=== PATIENT | female | born 1945 | race Caucasian/White ===

== ENCOUNTER → 2017-04-17 | Outpatient (CLI) | payer MEDICARE, BC ==
[~2017-04-17] MED LIST: ACIPHEX20 MG PO; ASPIRIN 81M81 MG/TA2 PO; B-121000 MCG PO; BENADRYL25 M2 PO; CALCIUM 600/VIT1 TAB PO; CALCIUM600 MG PO; COZAAR100 MG PO; DITROPAN 5MG TAB5 MG PO; FERROUS SULFATE65 MG PO; GLUCOSAMINE CHO1 CAP PO; GLUCOSAMINE SU500 M2 PO; L-LYSINE500 M1 PO; MAGNESIUM250 M1 PO; NORCO 325 MG-51 TAB PO; NORVASC 5MG5 MG/TAB PO; PREDNISONE10 MG PO; PREMARIN .3MG0.3 MG PO; PROTONIX 40MG T40 MG PO; TRIAM OI 15 0.025 TOP; TYLENOL ARTHRI650 M1 PO; VITAMIN D 1001000 IU PO
== END ==
LOC: MC.RAD 12:50
DX: Z12.31 Encounter for screening mammogram for malignant neoplasm of breast (principal)

== ENCOUNTER 2018-05-21 02:17 | Emergency (ER) | payer MEDICARE, BC ==
[~2018-05-21] VITALS: Ht 157.5 cm; Wt 68.2 kg
[2018-05-21 02:24] VITALS: TEMP 97.9
[2018-05-21 03:34] LABS: BASO % 0.6 % (0.0-2.0); EOS # 0.3 (0.0-0.7); EOS % 4.6 % (0-4.0); GRAN # 4.2 (1.4-6.5); GRAN % 57.4 % (42.2-75.2); HEMOGLOBIN 12.4 g/dl (12.5-16.0); LYMPH % 26.9 % (20.0-51.0); MEAN CELL VOLUME 93 fl (80.0-100.0); MEAN CORPUSCULAR HEMOGLOBIN 32 pg (27.0-31.0); MEAN CORPUSCULAR HGB CONC 34 g/dl (33.0-37.0); MEAN PLATELET VOLUME 10.2 fl (7.4-10.4); MONO # 0.7 (0.1-0.6); MONO % 10.2 % (1.7-9.3); PLATELET COUNT 242 K/mm3 (130-400); RED BLOOD COUNT 3.94 M/mm3 (4.10-5.30); REDCELL DISTRIBUTION WIDTH-CV 12.7 % (11.5-14.5)
[2018-05-21 03:35] LABS: HEMATOCRIT 36.5 % (37.0-47.0)
[2018-05-21 03:44] LABS: ALBUMIN 4.1 gm/dL (3.5-5.0); BILIRUBIN,TOTAL 0.4 mg/dL (0.0-1.0); CALCIUM 9.7 mg/dL (8.4-10.2); CREATININE, serum 0.92 mg/dL (0.52-1.25); POTASSIUM 4.6 mmol/L (3.4-5.0); TOTAL PROTEIN 6.7 gm/dL (6.4-8.2)
[2018-05-21 05:41] LABS: COLLECTION METHOD CLEAN CATCH
[2018-05-21 05:56] LABS: PH 7 (5-8); URINE APPEARANCE Hazy; URINE BACTERIA None Seen /hpf; URINE BILIRUBIN Negative (NEGATIVE); URINE BLOOD 1+ (NEGATIVE); URINE COLOR Straw; URINE GLUCOSE Negative (NEGATIVE); URINE KETONE Negative (NEGATIVE); URINE LEUKOCYTE ESTERASE 3+ (NEGATIVE); URINE NITRATE Negative (NEGATIVE); URINE PROTEIN(semi-quant) Negative (NEGATIVE); URINE RBC 0-2 /hpf; URINE UROBILINOGEN Negative (NEGATIVE)
[2018-05-21] MEDS ORDERED: ZOFRAN ODT8 MG PO (06:13)
[2018-05-21 07:13] VITALS: BP 150/72; PULSE 94
== END 2018-05-21 07:11 | disposition home or self-care (01) ==
LOC: COL.ER 02:17
PROVIDERS: Emergency Medicine
DX: N39.0 Urinary tract infection, site not specified (principal); I10 Essential (primary) hypertension; Z98.51 Tubal ligation status
CPT/HCPCS: A4216; J0696; J2270; J2405; J7030; Q9967

== ENCOUNTER 2018-07-11 10:50 | Day surgery (SDC) | payer MEDICARE, BC ==
[~2018-07-11] VITALS: Ht 157.5 cm; Wt 65.5 kg
[~2018-07-11 10:50] MED LIST changes: +ZOFRAN ODT8 MG PO
[2018-07-11 11:46] VITALS: BP 111/79; PULSE 69; TEMP 97.2
[2018-07-11] MEDS ORDERED: PROBIOTIC ACID1 EAC3 PO (11:56)
[2018-07-11] MEDS ORDERED: ALDACTONE 25MG25 M1 PO (11:56)
[2018-07-11 14:30] VITALS: BP 135/61; PULSE 65; TEMP 97.2
--- NOTE | 2018-07-11 14:30 | NUR ---
Patient brought back to bay 2. Alert and oriented. Vital signs obtained WNL. States that she is having pain of 9/10 to abdomen. Anestesia to admisiter pain medication at this time. Stewart at bedside. Requesting water and applesauce. Tolerating well. Call bustillos within reach, will continue to monitor.
[2018-07-11 14:45] VITALS: BP 151/67; PULSE 52; TEMP 97.2
--- NOTE | 2018-07-11 14:45 | NUR ---
Patients vital signs obtained, WNL. Tolerating food and drink without difficulty. Will continue to monitor.
[2018-07-11] MEDS ORDERED: MOTRIN 600600 MG/TAB PO (14:55)
[2018-07-11] MEDS ORDERED: DILAUDID 2MG TAB2 MG PO (14:55)
[2018-07-11] MEDS ORDERED: COLACE 100100 MG/CAP PO (14:56)
[2018-07-11 15:00] VITALS: BP 111/89; PULSE 49
[2018-07-11 15:15] VITALS: BP 105/79; PULSE 60
--- NOTE | 2018-07-11 15:15 | NUR ---
Patient reports that she has had minimal pain improvement since medication administration. Patient offered more IV pain medication. States that she would rather go home and take new perscribed medication. Ambulated to the bathroom with contact guard assist. Spontaneous void obtained. Patient states she is ready for discharge instructions.
--- NOTE | 2018-07-11 15:20 | NUR ---
Discharge instructions reviewed with patient and . Verbalized understanding. IV removed. Patient to have get dressed at this time.
--- NOTE | 2018-07-11 15:39 | NUR ---
Vital signs WNL. Tolerating food and drink well. Will continue to monitor.
--- NOTE | 2018-07-11 15:47 | NUR ---
Patient wheeled down to lobby. To be driven home by . Education packet, discharge instructions, and scripts in hand.
== END 2018-07-11 15:47 | disposition home or self-care (01) ==
LOC: SDCO 10:50
DX: K40.90 Unilateral inguinal hernia, without obstruction or gangrene, not specified as recurrent (principal); I10 Essential (primary) hypertension; E78.5 Hyperlipidemia, unspecified; K21.9 Gastro-esophageal reflux disease without esophagitis; Z86.010 Personal history of colon polyps; M41.9 Scoliosis, unspecified; M17.12 Unilateral primary osteoarthritis, left knee; M16.10 Unilateral primary osteoarthritis, unspecified hip; Z80.42 Family history of malignant neoplasm of prostate; Z80.41 Family history of malignant neoplasm of ovary; Z80.8 Family history of malignant neoplasm of other organs or systems; Z79.899 Other long term (current) drug therapy
CPT/HCPCS: C1781; J0690; J1885; J2250; J2405; J2704; J3010; J7120

== ENCOUNTER 2020-06-07 17:56 | Emergency (ER) | payer MEDICARE, BC ==
[~2020-06-07] VITALS: Ht 157.5 cm; Wt 70.9 kg
[~2020-06-07 17:56] MED LIST changes: +ALDACTONE 25MG25 M1 PO; +COLACE 100100 MG/CAP PO; +DILAUDID 2MG TAB2 MG PO; +MOTRIN 600600 MG/TAB PO; +PROBIOTIC ACID1 EAC3 PO
[2020-06-07 18:03] VITALS: TEMP 97.2
[2020-06-07 21:12] VITALS: BP 150/95; PULSE 78
== END 2020-06-07 21:11 | disposition home or self-care (01) ==
LOC: COL.ER 17:56
DX: S22.050A Wedge compression fracture of T5-T6 vertebra, initial encounter for closed fracture (principal); S01.01XA Laceration without foreign body of scalp, initial encounter; S40.021A Contusion of right upper arm, initial encounter; Z88.6 Allergy status to analgesic agent; I10 Essential (primary) hypertension; W10.9XXA Fall (on) (from) unspecified stairs and steps, initial encounter; Y92.009 Unspecified place in unspecified non-institutional (private) residence as the place of occurrence of the external cause

== ENCOUNTER 2021-03-23 11:22 | Inpatient (IN) | payer MEDICARE, BC ==
[~2021-03-23] VITALS: Ht 157.5 cm; Wt 79.1 kg
[2021-03-23 15:33] LABS: BASO % 0.2 % (0.0-2.0); EOS % 0.3 % (0.0-4.0); GRAN # 11.3 K/mm3 (1.4-6.5); GRAN % 86.7 % (42.2-75.2); HEMATOCRIT 37.2 % (37.0-47.0); HEMOGLOBIN 12.7 g/dl (12.5-16.0); LYMPH # 0.9 K/mm3 (1.2-3.4); LYMPH % 6.7 % (20.0-51.0); MEAN CELL VOLUME 90 fl (80.0-100.0); MEAN CORPUSCULAR HEMOGLOBIN 31 pg (27-31); MEAN CORPUSCULAR HGB CONC 34 g/dl (33.0-37.0); MEAN PLATELET VOLUME 9.4 fl (7.4-10.4); MONO # 0.7 K/mm3 (0.1-0.6); MONO % 5.7 % (1.7-9.3); PLATELET COUNT 239 K/mm3 (130-400); RED BLOOD COUNT 4.15 M/mm3 (4.10-5.30); REDCELL DISTRIBUTION WIDTH-CV 13.2 % (11.5-14.5)
[2021-03-23 15:39] LABS: INR 0.9 (0.8-3.0); PROTHROMBIN TIME 10.4 SECONDS (9.7-12.8)
[2021-03-23 15:48] LABS: ALBUMIN 3.9 gm/dL (3.4-4.8); BILIRUBIN,TOTAL 0.7 mg/dL (0.2-1.2); CALCIUM 8.9 mg/dL (8.4-10.2); CREATININE, serum 0.81 mg/dL (0.57-1.11); TOTAL PROTEIN 6.9 gm/dL (6.2-8.1)
--- NOTE | 2021-03-23 17:00 | NUR ---
arrived on unit per stretcher from ED, moved to bed with use of slide board, slacks removed, requesting a muscle relaxant, at bedside
--- NOTE | 2021-03-23 17:45 | NUR ---
C/O PAIN TO LEFT HIP MEDICATED WITH MORPHINE 2MG SLOW iv
--- NOTE | 2021-03-23 18:00 | NUR ---
glover cath inserted under sterile technique, appears to continue to be in pain, will notify provider for something different for pain
[2021-03-23 18:18] LABS: COLLECTION METHOD CLEAN CATCH
[2021-03-23 18:26] LABS: MUCOUS Present (NOT PRESENT); PH 6 (5-8); URINE APPEARANCE Hazy (CLEAR/HAZY); URINE BACTERIA Rare /hpf (NONE SEEN); URINE BILIRUBIN Negative (NEGATIVE); URINE BLOOD Negative (NEGATIVE); URINE COLOR Yellow (YELLOW); URINE GLUCOSE Negative (NEGATIVE); URINE KETONE Trace (NEGATIVE); URINE LEUKOCYTE ESTERASE 1+ (NEGATIVE); URINE NITRATE Positive (NEGATIVE); URINE PROTEIN(semi-quant) Negative (NEGATIVE); URINE UROBILINOGEN Negative (NEGATIVE)
--- NOTE | 2021-03-23 18:36 | NUR ---
spoke with WALE Zepeda regarding different pain meds
--- NOTE | 2021-03-23 18:45 | NUR ---
medicated with dilaudid 0.25mg slow IV
--- NOTE | 2021-03-23 18:55 | NUR ---
bedside alexia report given to MAT Thompson
[2021-03-23] MEDS ORDERED: COZAAR 50MG50 MG/TAB PO (19:29)
[2021-03-23] MEDS ORDERED: TYLENOL 325MG325 MG PO (19:33)
[2021-03-23] MEDS ORDERED: CRANBERRY FRUI425 MG PO (19:35)
[2021-03-23] MEDS ORDERED: FOSAMAX 70MG TA70 MG PO (19:51)
[2021-03-23 20:00] VITALS: BP 159/91; PULSE 88; TEMP 98.4
[2021-03-24] VITALS (9 sets, daily range): BP systolic 117–156; BP diastolic 60–84; PULSE 74–97; TEMP 97.6–98.2
--- NOTE | 2021-03-24 01:33 | NUR ---
PATIENT ALERT AND ORIENTED. MED RX DONE. ICE TO L HIP. L WRIST IN SPLINT/LEANN WRAP. MOTTA TO DD WITH CLEAR YELLOW URINE OUTPUT. PATIENT TOLERATED SOME BITES OF CRACKERS AND WATER. NPO AT MID. C/O SEVERE PAIN TO L HIP. PRN DILAUDID AND SCHEDULED TYLENOL WAS GIVEN WITH LITTLE PAIN REDUCTION. SPOKE WITH WALE LECHUGA, FOR INCREASE IN DILAUDID ORDER. DILAUDID 0.5 MG GIVEN IV SLOW PUSH. PATIENT IS NOW RESTING IN BED. SCDS AND DAVIN HOSE IN PLACE. CALL LIGHT WITHIN REACH.
[2021-03-24 06:10] LABS: BASO % 0.2 % (0.0-2.0); EOS # 0.1 K/mm3 (0.0-0.7); EOS % 1.1 % (0.0-4.0); HEMATOCRIT 37.3 % (37.0-47.0); HEMOGLOBIN 12.7 g/dl (12.5-16.0); LYMPH % 10.9 % (20.0-51.0); MEAN CELL VOLUME 89 fl (80.0-100.0); MEAN CORPUSCULAR HEMOGLOBIN 30 pg (27-31); MEAN CORPUSCULAR HGB CONC 34 g/dl (33.0-37.0); MEAN PLATELET VOLUME 9.9 fl (7.4-10.4); MONO # 0.7 K/mm3 (0.1-0.6); MONO % 7.5 % (1.7-9.3); PLATELET COUNT 213 K/mm3 (130-400); RED BLOOD COUNT 4.18 M/mm3 (4.10-5.30); REDCELL DISTRIBUTION WIDTH-CV 13.2 % (11.5-14.5)
[2021-03-24 06:27] LABS: CALCIUM 8.8 mg/dL (8.4-10.2); CREATININE, serum 0.73 mg/dL (0.57-1.11); POTASSIUM 3.9 mmol/L (3.5-4.5)
--- NOTE | 2021-03-24 08:15 | NUR ---
PATIENT IS A&O. VSS. C/O SEVERE PAIN IN LLE AND BACK. GAVE PRN IV DILAUDID. NPO FOR SURGERY TODAY PENDING ECHO. LLE IS DRAWN UP AND SLIGHTLY INTERNALLY ROTATED. TEDS TO RLE. SCD'S TO BLE. POSITIVE PEDAL PULSES TO BLE. MOTTA TO DD WITH SMALL AMOUNTS OF CLEAR YELLOW URINE NOTED. IV FLUIDS INFUSING INTO RIGHT FORARM IV VIA PUMP. NO C/O N/V. AM MEDS GIVEN WITH SIPS. HELD AM COZZAR DUE PATIENT ONLY TAKES AT HS, MED REC TO BE UPDATED WITH HOSPITALIST ROUNDS. LUE SPLINT IS CD&I. BEDREST. HEAD TO TOE ASSESSMENT COMPLETE. CALL LIGHT IN REACH. SUPERVISOR MACHINE SETTER NOW AT BEDSIDE.
--- NOTE | 2021-03-24 10:26 | NUR ---
Initial visit; Ella thanked Dental Secretary for looking in on her, offering comfort and prayer. Dental Secretary will follow up while patient is here and will keep her in Dental Secretary's prayers.
--- NOTE | 2021-03-24 11:25 | NUR ---
electric utility lineworker met with patient to discuss discharge plan. Patient's Ganesh ([phone]) present at bedside. Patient reports that she lives at home with her and is independent with her activities of daily living. She reports to not having to utilize any DME to assist with mobility. Patient reports to no oxygen needs at home. PCP is Dr. Ribeiro and they utilize [facility] pharmacy for medication needs with no cost difficulty. Patient believes they have a DPOA-HC established and that a copy should be on file with PCP office. Patient gives permission to call and obtain a copy. Spoke with patient and patient's about the need for post acute rehab. Patient verbalizes that she has never done it before but would like to do whatever will make her heal the fastest. After speaking with the patient about her options she would like [facility] as her preferred choice and [facility] as a secondary. Referrals sent to IPR director Brina and [facility]. Discharge plan: Pending PT/OT referrals
--- NOTE | 2021-03-24 14:45 | NUR ---
PATIENT GOING DOWN TO OR VIA BED. BLANK CONSENT ON CHART. WANTS TO WAIT IN ROOM
--- NOTE | 2021-03-24 17:30 | NUR ---
PATIENT BACK IN ROOM 323 POST OP. ORIENTED BUT DROWSY. VSS. DENIES PAIN OR NAUSEA. LEFT HIP DRESSING IS CD&I WITH GAUZE & TEGADERM. TEDS TO BLE. SCD'S TO BLE. POSITIVE PEDAL PULSES. PATIENT IS UNABLE TO MOVE BLE AT THIS TIME DUE TO BLOCK. MOTTA TO DD. POST OP IV FLUIDS INFUSING INTO RIGHT FORARM. HEAD TO TOE ASSESSMENT WNL. FAMILY AT BEDSIDE. CALL LIGHT IN REACH.
--- NOTE | 2021-03-24 22:10 | NUR ---
PATIENT TOOK OFF MONITORING EQUIPMENT.
--- NOTE | 2021-03-24 22:11 | NUR ---
PATIENT TOOK OFF MONITORING EQUIPMENT.
--- NOTE | 2021-03-25 01:55 | NUR ---
Scheduled medications given. Shift assessment performed. Post op vitals being monitored. Dressing on left hip is CDI. Patient has sensation in operative extremity and is able to slightly move. Scheduled tylenol given. VSS. Patient A&O. Patient denies any pain, discomfort, SOA, or further needs at this time. Call light in reach.
--- NOTE | 2021-03-25 02:01 | NUR ---
Rizzo catheter in place. No kinks in tubing. Securment device in use.
[2021-03-25 06:22] LABS: BASO % 0.4 % (0.0-2.0); EOS # 0.4 K/mm3 (0.0-0.7); GRAN # 4.7 K/mm3 (1.4-6.5); GRAN % 68.1 % (42.2-75.2); LYMPH # 1.1 K/mm3 (1.2-3.4); LYMPH % 15.7 % (20.0-51.0); MEAN CELL VOLUME 90 fl (80.0-100.0); MEAN CORPUSCULAR HEMOGLOBIN 30 pg (27-31); MEAN CORPUSCULAR HGB CONC 33 g/dl (33.0-37.0); MEAN PLATELET VOLUME 10.2 fl (7.4-10.4); MONO # 0.7 K/mm3 (0.1-0.6); MONO % 9.4 % (1.7-9.3); PLATELET COUNT 188 K/mm3 (130-400); RED BLOOD COUNT 3.67 M/mm3 (4.10-5.30); REDCELL DISTRIBUTION WIDTH-CV 13.3 % (11.5-14.5)
[2021-03-25 06:30] LABS: CALCIUM 7.9 mg/dL (8.4-10.2); CREATININE, serum 0.75 mg/dL (0.57-1.11); POTASSIUM 3.9 mmol/L (3.5-4.5)
[2021-03-25 06:32] LABS: HEMATOCRIT 33.1 % (37.0-47.0)
--- NOTE | 2021-03-25 07:00 | NUR ---
Report received from MAT Boone. PT in bed resting awake nad alert.
[2021-03-25 07:58] VITALS: BP 119/72; PULSE 79; TEMP 97.9
--- NOTE | 2021-03-25 08:36 | NUR ---
Pt doing well, pain to L hip, PRN pain pill provided in anticipation of therapy this am. L hip dressing is CDI, small amount of swelling. IVF to R A/C. Pt passing gas. L wrist in splint and CMS intact. Waiting for breakfast, will continue to monitor.
--- NOTE | 2021-03-25 10:00 | NUR ---
Follow-up visit; Patient using telephone, Gaming Dealer wished her well. Ella had a family member with her as well.
[2021-03-25 11:24] VITALS: BP 106/69; PULSE 100; TEMP 97.7
--- NOTE | 2021-03-25 12:57 | NUR ---
[facility] accepts the patient for SN[facility]. Clinical updates faxed to [facility] and IPR director Brina notified.
[2021-03-25 15:29] VITALS: BP 116/66; PULSE 95; TEMP 97.8
--- NOTE | 2021-03-25 17:51 | NUR ---
Pt has done well over shift. Warm blankets, KPAD, ice pack to left hip, doing well with pain medications provided PRN over shift. Resting in bed, will give report to [facility] nurse who will resume care.
[2021-03-25 19:59] VITALS: BP 95/67; PULSE 99; TEMP 97.7
--- NOTE | 2021-03-25 23:39 | NUR ---
PATIENT DOING WELL TONIGHT. ALERT AND ORIENTED. DENIES NEEDS FOR PAIN MANAGEMENT INTERVENTIONS. KPAD TO ABD FOR WARMTH. INT TO R FA PATENT AND FLUSHES EASILY. SCHEDULED MEDS ADMINISTERED PER EMAR. GAUZE DRESSING TO L HIP INCISION IS CDI.
[2021-03-26 00:05] VITALS: BP 96/54; PULSE 81; TEMP 98.2
[2021-03-26 04:13] VITALS: BP 105/71; PULSE 80; TEMP 98.4
[2021-03-26 07:59] LABS: CALCIUM 8.2 mg/dL (8.4-10.2); CREATININE, serum 0.78 mg/dL (0.57-1.11); POTASSIUM 3.6 mmol/L (3.5-4.5)
[2021-03-26 08:09] LABS: BASO % 0.5 % (0.0-2.0); EOS # 0.7 K/mm3 (0.0-0.7); EOS % 9.6 % (0.0-4.0); GRAN # 4.7 K/mm3 (1.4-6.5); GRAN % 62.8 % (42.2-75.2); HEMOGLOBIN 11.2 g/dl (12.5-16.0); LYMPH # 1.2 K/mm3 (1.2-3.4); LYMPH % 16.3 % (20.0-51.0); MEAN CELL VOLUME 91 fl (80.0-100.0); MEAN CORPUSCULAR HEMOGLOBIN 30 pg (27-31); MEAN CORPUSCULAR HGB CONC 33 g/dl (33.0-37.0); MEAN PLATELET VOLUME 10.5 fl (7.4-10.4); MONO # 0.8 K/mm3 (0.1-0.6); MONO % 10.5 % (1.7-9.3); PLATELET COUNT 189 K/mm3 (130-400); RED BLOOD COUNT 3.68 M/mm3 (4.10-5.30); REDCELL DISTRIBUTION WIDTH-CV 13.5 % (11.5-14.5)
[2021-03-26 08:14] LABS: HEMATOCRIT 33.5 % (37.0-47.0)
[2021-03-26 08:32] VITALS: BP 98/65; PULSE 80; TEMP 97.7
--- NOTE | 2021-03-26 08:45 | NUR ---
Patient resting in bed watching TV. She tolerated her breakfast. She is in good spirits. Cms intact, left wrist brace on. Left hip dressing CDI. Teds & Scds. Matthias to DD, discussed with her needing this removed today. We also reviewed importance of increaing activity.
--- NOTE | 2021-03-26 11:12 | NUR ---
Patient assisted up to chair one assist with her walker. She did well. She brushed her teeth. warm wipes & lotion to skin. Patient feels better with repositioning.
[2021-03-26 12:30] VITALS: BP 117/82; PULSE 77; TEMP 97.7
--- NOTE | 2021-03-26 13:41 | NUR ---
Skating Carhop contacted [facility] Gonsal[facility] Director who advised they could possibly admit tomorrow, pending staffing and approval from licensed nursing assistant. SW faxed clinical updates to [facility].
--- NOTE | 2021-03-26 14:24 | NUR ---
Patient did well with lunch. rounded. Matthias Nick per orders, eliud provided with brief on. Will contineu to monitor.
--- NOTE | 2021-03-26 14:48 | NUR ---
Patient up to bedside commode, she was unable to void or have a BM. Patient ready to rest in bed and take a nap. Will let her rest.
[2021-03-26 15:40] VITALS: BP 100/63; PULSE 81; TEMP 97.3
--- NOTE | 2021-03-26 17:15 | NUR ---
Patient resting in bed. Neymar chen back on. Ordering dinner, reports minimal appetite. Will monitor
--- NOTE | 2021-03-26 18:11 | NUR ---
Patient up to bedside commode. Void & BM. Now sitting in chair for dinner.
[2021-03-26 19:41] VITALS: BP 99/58; PULSE 74; TEMP 97.9
--- NOTE | 2021-03-26 23:01 | NUR ---
PATIENT ALERT AND ORIENTED. GAUZE DRESSING TO L HIP CDI. C/O MUSCLE SPASMS AND MEG AND FLEXERIL GIVEN. KPAD IN PLACE. INT TO R FA WITH ROCEPHIN INFUSING. UP SEVERAL TIMES TO BEDSIDE COMMODE.
[2021-03-27 00:11] VITALS: BP 125/67; PULSE 78; TEMP 97.5
[2021-03-27 03:33] VITALS: BP 119/77; PULSE 67; TEMP 97.6
--- NOTE | 2021-03-27 06:53 | NUR ---
awake sitting up in chair, bedside shift report received from MAT Camarillo
--- NOTE | 2021-03-27 07:13 | NUR ---
working on computer, full assessment completed, see interventions for further info, denies needs at this time
[2021-03-27 07:23] VITALS: BP 157/84; PULSE 73; TEMP 97.7
--- NOTE | 2021-03-27 08:45 | NUR ---
remains up in chair, had breakfast and tolerated well, am meds given, will wait to take miralax at this time
--- NOTE | 2021-03-27 09:52 | NUR ---
back in bed and appears to be sleeing, eyes closed, resp quiet and easy
[2021-03-27 10:57] VITALS: BP 130/62; PULSE 71; TEMP 97.9
--- NOTE | 2021-03-27 11:05 | NUR ---
remains resting in bed without needs or c/os
--- NOTE | 2021-03-27 11:53 | NUR ---
up in chair ready for lunch, informed she would be going to inpatient rehab today and in agreement with this
[2021-03-27] MEDS ORDERED: OMNICEF 300MG300 MG PO (12:21)
[2021-03-27] MEDS ORDERED: ASPI325T6 PO (12:23)
[2021-03-27] MEDS ORDERED: ROXICODONE 55 MG/TAB PO (12:25)
[2021-03-27] MEDS ORDERED: DULCOLAX STOOL100 MG PO (12:26)
[2021-03-27] MEDS ORDERED: MIRALAX PA17 GM/Dose PO (12:26)
[2021-03-27] MEDS ORDERED: OSCAL 500 TAB500 MG PO (12:26)
[2021-03-27] MEDS ORDERED: VITAMIN C500 MG PO (12:27)
[2021-03-27] MEDS ORDERED: DUO-KAPS1 CAP PO (12:27)
[2021-03-27] MEDS ORDERED: FLEXERIL 1010 MG/TAB PO (12:28)
--- NOTE | 2021-03-27 12:40 | NUR ---
Patient to discharge to [facility] later today. Patient's RN and hospitalist notified.
--- NOTE | 2021-03-27 13:30 | NUR ---
remains up in chair, in to visit
--- NOTE | 2021-03-27 13:58 | NUR ---
transferred per WC to IPR room 336
== END 2021-03-27 13:59 | DRG 481 ==
LOC: COL.ER 11:22 → SURG 16:27
PROVIDERS: Orthopaedic Surgery Sports Medicine; Physician Assistant; ADMIT Internal Medicine
PROC: 0QH734Z Insertion of Internal Fixation Device into Left Upper Femur, Percutaneous Approach (ICD-10-PCS; principal; 2021-03-24 15:30)
DX: S72.002A Fracture of unspecified part of neck of left femur, initial encounter for closed fracture (principal); S52.302A Unspecified fracture of shaft of left radius, initial encounter for closed fracture; S52.502A Unspecified fracture of the lower end of left radius, initial encounter for closed fracture; N39.0 Urinary tract infection, site not specified; I10 Essential (primary) hypertension; K21.9 Gastro-esophageal reflux disease without esophagitis; M21.052 Valgus deformity, not elsewhere classified, left hip; R01.1 Cardiac murmur, unspecified; Z96.652 Presence of left artificial knee joint; W00.0XXA Fall on same level due to ice and snow, initial encounter; Y93.89 Activity, other specified; Y92.89 Other specified places as the place of occurrence of the external cause; Z23 Encounter for immunization
CPT/HCPCS: 99223-AI; 99231-AI; 99232-AI; 99239; A4314; A9284; C1713; J0690; J0696; J1170; J2270; J2405; J2704; J2795; J3010; J7042

== ENCOUNTER 2021-03-27 13:21 | Inpatient (IN) | payer MEDICARE, BC ==
[~2021-03-27] VITALS: Ht 157.5 cm; Wt 84.5 kg
[~2021-03-27 13:21] MED LIST changes: +ASPI325T6 PO; +COZAAR 50MG50 MG/TAB PO; +CRANBERRY FRUI425 MG PO; +DULCOLAX STOOL100 MG PO; +DUO-KAPS1 CAP PO; +FLEXERIL 1010 MG/TAB PO; +FOSAMAX 70MG TA70 MG PO; +MIRALAX PA17 GM/Dose PO; +OMNICEF 300MG300 MG PO; +OSCAL 500 TAB500 MG PO; +ROXICODONE 55 MG/TAB PO; +TYLENOL 325MG325 MG PO; +VITAMIN C500 MG PO
--- NOTE | 2021-03-27 13:59 | NUR ---
arrived per WC to room 336, awake and alert, at bedside
--- NOTE | 2021-03-27 15:20 | NUR ---
resting in chair, admission assessment completed,
--- NOTE | 2021-03-27 17:00 | NUR ---
remains up in chair and eating supper now
[2021-03-27 18:02] VITALS: BP 122/65; PULSE 88; TEMP 97.9
--- NOTE | 2021-03-27 18:49 | NUR ---
bedside shift given to MAT Friend
[2021-03-28 02:07] VITALS: BP 146/88; PULSE 79; TEMP 97.9
--- NOTE | 2021-03-28 04:36 | NUR ---
RESTING QUIETLY MOST OF NIGHT. ASSIST OF 1 TO TOILET. TYLENOL AND OXYCODONE FOR LLE PAIN.
--- NOTE | 2021-03-28 06:54 | NUR ---
Report received from MAT Friend. Patient is awake in bed and requested this nurse assist her in repositioning herself because she was not comfortable. Patient also stated her pain was a 5/10. This nurse told her she would bring her something for the pain when I brought her medication. Call light and bedside table are within reach. Will continue to monitor patient throughout shift.
--- NOTE | 2021-03-28 11:15 | NUR ---
Patient's granddaughter called but patient was doing therapy. This nurse told her that she would tell her grandmother to call her.
--- NOTE | 2021-03-28 15:00 | NUR ---
Patient has completed all therapies for the day and is resting in bed. Daughter is in room visiting. Call light and bedside table are within reach.
--- NOTE | 2021-03-28 16:36 | NUR ---
Voice Engineer met with patient to complete intake as she is new to [facility]. Patient's daughter, Michelle is at bedside. Patient lives in [place] with her , Ganesh and sees Dr. Ribeiro for primary care. Patient obtains medications from [facility] with no difficulties and has a front wheeled walker at home. Patient does not normally use any DME and was previously independent with ADLS. Patient has Advance Directives in EMR which designates her Ganesh and daughter, Michelle. SW will continue to follow for discharge needs.
[2021-03-28 17:17] VITALS: BP 135/76; PULSE 81; TEMP 98.8
--- NOTE | 2021-03-28 21:30 | NUR ---
PT ASSISTED TO RESTROOM SBA WITH GAIT BELT AND WALKER. PT ORIGINALLY STIFF, BUT MOVED WELL ON OWN TO RESTROOM AND BACK. THIS RN AND PATIENT DAUGHTER ASSISTED PT INTO BED, PLACED SCD'S ON. ASSESSMENT COMPLETED. MEDICATIONS GIVEN. PT DENIES ANY COMPLAINTS, WANTED MORE ICE PACK ON LEFT HIP AND RIGHT SIDE. ICE PACKS GIVEN. PT STATED SHE WAS GOING TO TRY TO GET SOME SLEEP TONIGHT.
[2021-03-29 06:00] VITALS: BP 146/84; PULSE 70; TEMP 97.7
--- NOTE | 2021-03-29 06:20 | NUR ---
PT HAD AN UNEVENTFUL NIGHT. PT REPORTED HEAT PACK WAS HELPFUL IN REDUCING PAIN AND GAVE PATIENT ABILITY TO SLEEP. PT WAS ABLE TO GO WITHOUT PAIN MEDICATION FOR MOST OF NIGHT. CALL LIGHT IN REACH.
--- NOTE | 2021-03-29 08:36 | NUR ---
Pt assessment complete. Pt is sitting up in the recliner upon entry, she is A/O x4. Her breathing is even and unlabored on RA. Pt denies SOB. Pain tolerable at this time. Reports some spasms to L leg, discussed medications with her. Therapy in to see patient at this time.
--- NOTE | 2021-03-29 10:17 | NUR ---
Follow-up visit; Ella thanked Development Manager for continuing to look in on her, for visiting and listening and offering a [place] and keeping her in Development Manager's prayers.
[2021-03-29 17:21] VITALS: BP 146/83; PULSE 89; TEMP 98.2
--- NOTE | 2021-03-29 18:06 | NUR ---
Pt requested pain medications many times through the day. Tonight patient is visually uncomfortable, states she has "spasms" down her left leg. Warm packs and pain medications administered per protocol. Second dose of Roxicodone administered 45 min after first due to unrelieved pain. Pt's daughter at bedside. Resting in bed at this time. Call light within reach.
--- NOTE | 2021-03-29 22:24 | NUR ---
Patient assessed around 2014. Alert and oriented x 4, and able to make needs known. Reports level 4 pain to left groin/leg. Given PRN APAP. K-pad to site. Dressing to left hip CDI. Brace to left wrist. Denies SOB and dyspnea. LS CTA. HRR. Capillary refill less than 3 seconds. Non-tenting skin turgor. BSAx4. Abdomen soft and non-tender. 1+ edema BLE. Voices no questions, needs, or concerns at this time. In bed with call light within reach.
[2021-03-30 05:56] VITALS: BP 157/93; PULSE 74; TEMP 98
--- NOTE | 2021-03-30 06:12 | NUR ---
Patient has been stand by assist for going to the bathroom this shift. Given PRN APAP at HS for pain, and given PRN Roxicodone for pain this morning as requested. Voices no further questions, needs, or concerns at this time. In bed with call light within reach.
--- NOTE | 2021-03-30 07:10 | NUR ---
Report received from MAT Reyes. Patient is resting in bed. Call light and bedside table are within reach. Will continue to monitor patient throughout shift.
--- NOTE | 2021-03-30 15:00 | NUR ---
Patient has completed all therapies for the day and is resting comfortably in recliner; states pain is 4/10.
--- NOTE | 2021-03-30 16:49 | NUR ---
Gear Repairer met with patient to provide copy of team conference notes. SW advised the team set a tentative discharge date of 04/06/21 and patient states she thinks by then she will be good to go home. SW will follow up with patient on Home Health services and scheduling family meeting.
--- NOTE | 2021-03-30 17:00 | NUR ---
Patient's daughter is at bedside.
[2021-03-30 17:10] VITALS: BP 123/71; PULSE 96; TEMP 98.3
--- NOTE | 2021-03-30 22:44 | NUR ---
Patient given PRN Roxicodone for pain as requested, as well as APAP. SBA with walker. Voices no further questions, needs, or concern at this time. In bed with call light within reach.
[2021-03-31 05:04] VITALS: BP 129/67; PULSE 71; TEMP 97.6
--- NOTE | 2021-03-31 05:39 | NUR ---
Patient given PRN Roxicodone and APAP during the night as requested for pain to left groin/leg. Also has K-Pad to site. Voices no questions, needs, or concerns at this time. In bed with call light within reach.
--- NOTE | 2021-03-31 06:57 | NUR ---
Report received from MAT Reyes. Patient is awake and resting comfortably in recliner and states her pain in 4/10. Call light and bedside table are within reach.
--- NOTE | 2021-03-31 10:33 | NUR ---
Follow-up; looked in on Ella who is doing well and thanked for saying"hi" and wished her a good day.
--- NOTE | 2021-03-31 13:06 | NUR ---
Admission QIM scores were reviewed by the team. Code of 5 chosen for eating was determined by team discussion to be the most usual performance for this patient during the assessment period. Code of 3 chosen for toilet hygiene was determined by team discussion to be the most usual performance for this patient during the assessment period. Code of 3 chosen for upper body dressing was determined by team discussion to be the most usual performance before interventions for this patient during the assessment period. Code of 2 chosen for putting on/taking off footwear was determined by team discussion to be the most usual performance for this patient during the assessment period. Code of 3 for sit to stand was determined by team discussion to be the most usual performance for this patient during the assessment period. Code of 3 for chair/bed to chair transfers was determined by team discussion to be the most usual performance for this patient during the assessment period.--Brina Bravo, PD
--- NOTE | 2021-03-31 14:58 | NUR ---
Care resumed from Imani. Patient up to the bathroom. one assist with walker. Patient reports elevated pain with movement. Pain to her left thigh. Tylenol prn per request. Fresh ice pack provided. Will monitor.
--- NOTE | 2021-03-31 15:36 | NUR ---
Appeals Rn contacted patient's daughter, Michelle to schedule family meeting for 0900 tomorrow morning. SW also provided Medicare.gov list of Home Health agencies to patient for review.
[2021-03-31 18:03] VITALS: BP 121/77; PULSE 81; TEMP 97.8
--- NOTE | 2021-03-31 19:10 | NUR ---
Patient sitting up in chair. Her significant other at bedside. Pain better after pain pill. Bedside report to Priyanka RIVERO
--- NOTE | 2021-03-31 20:00 | NUR ---
ASSISTED TO BR WITH WALKER. PT ABLE TO MANAGE ALL TOILETING TASKS PER SELF. VOIDING W/O DIFFICULTY. AMB TO BED. KPAD TO LT THIGH. SEE MAR FOR ALL MEDS GIVEN. CALL LIGHT IN REACH. BED ALARM SET.
[2021-04-01 04:48] VITALS: BP 115/55; PULSE 78; TEMP 97.6
--- NOTE | 2021-04-01 08:22 | NUR ---
PT SITTING UP IN RECLINER. MORNING MEDICATIONS GIVEN. SHIFT ASSESSMENT COMPLETED. PT DENIES ANY PAIN. L WRIST BRACE ON. DISCUSSED WITH PT THE PLAN FOR TODAY, VERBALIZES UNDERSTANDING. WILL CONTINUE TO MONITOR.
--- NOTE | 2021-04-01 11:37 | NUR ---
Tray Casting Machine Operator participated in patient/family conference which included patient's Ganesh, daughter Michelle, IPR Director, PT/OT, and Dr. Acosta. Brina, IPR Director opened meeting followed by report from PT/OT and Dr. Acosta. Discharge date is set for 04/06/21 and HH services are recommended. Patient is still reviewing Medicare.gov list of agencies. SW will continue to follow.
[2021-04-01 18:02] VITALS: BP 142/86; PULSE 90; TEMP 98
--- NOTE | 2021-04-01 18:32 | NUR ---
PT HAD UNEVENTFUL DAY. PAIN MANAGED WITH PRN MEDICATIONS PER MAR.
--- NOTE | 2021-04-01 19:30 | NUR ---
PT SITTING IN RECLINER. VISITING WITH DAUGHTER. SEE MAR FOR PAIN MED GIVEN.
[2021-04-02 05:57] VITALS: BP 145/74; PULSE 78; TEMP 97.5
--- NOTE | 2021-04-02 08:09 | NUR ---
PT ASSESSED. NO COMPLAINTS OF PAIN OR DYSPNEA. NO SIGNS OR SYMPTOMS OF DISTRESS. PT ASSISTED TO RESTROOM WITHOUT COMPLICATION. CALL LIGHT WITHIN REACH
[2021-04-02 15:58] VITALS: BP 115/71; PULSE 80; TEMP 97.7
--- NOTE | 2021-04-02 20:52 | NUR ---
PT SITTING UP IN RECLINER. NO NEEDS AT THIS TIME.
--- NOTE | 2021-04-03 00:07 | NUR ---
GAVE 2ND ROXICODONE FOR UNRELIEVED LT HIP PAIN. KPAD TO AREA. REFUSED PILLOW SUPPORT.
--- NOTE | 2021-04-03 00:50 | NUR ---
BED ALARM SOUNDING PT TRYING TO GET OUT OF BED TO GO TO BR. REMINDED PT TO USE CALL LIGHT. STILL CONFUSED BUT COOPERATIVE. PT C/O RT HIP PAIN. SEE MAR FOR PAIN MED GIVEN.
--- NOTE | 2021-04-03 01:58 | NUR ---
PT C/O LT GROIN PAIN. TOO SOON FOR PAIN MED. REPOSITION IN BED TO GOOD ALLIGNMENT. LLE ON PILLOW. FRESH ICE PACK PLACED TO LT GROIN. WILL CONTINUE TO MONITOR.
--- NOTE | 2021-04-03 05:25 | NUR ---
PT HAS HAD DIFFICULTY WITH LEFT GROIN PAIN CONTROL THIS SHIFT. USING ICE PACK OR KPAD PRN. USING ROXICODONE AND TYLENOL. PT UP TO BR SEVERAL TIMES SHE HAS HX OF OVERACTIVE BLADDER.
[2021-04-03 05:28] VITALS: BP 103/66; BP 135/65; PULSE 73; PULSE 75; TEMP 97.6; TEMP 97.9
--- NOTE | 2021-04-03 10:19 | NUR ---
PT ASSESSED. NO COMPLAINTS OF PAIN OR DYSPNEA. ASSISTED WITH ADLS AND TOILETING. NO OTHER CONCERNS AT THIS TIME. CALL LIGHT WITHIN REACH
[2021-04-03 17:52] VITALS: BP 134/88; PULSE 88; TEMP 98.7
--- NOTE | 2021-04-03 22:15 | NUR ---
PT MOD I IN ROOM WITH WALKER. SEE MAR FOR ALL PAIN MEDS GIVEN.
[2021-04-04 05:29] VITALS: BP 137/73; PULSE 72; TEMP 97.8
--- NOTE | 2021-04-04 05:56 | NUR ---
PT C/O LT GROIN AND UPPER ANTERIOR THIGH STILL PAINFUL THIS SHIFT. USING ROXICODE, TYLENOL AND KPAD ALTERNATING WITH ICE. HAS BEEN MOD I IN ROOM THIS SHIFT BUT REQUIRED ASSIST LIFTING LT LEG INTO BED THIS MORNING.
--- NOTE | 2021-04-04 09:00 | NUR ---
PT ASSESSED. NO COMPLAINTS OF PAIN OR DYSPNEA. NO SIGNS OR SYMPTOMS OF DISTRESS. MEDICATED PROFILACTICLY FOR THERAPY. NO OTHER CONCERNS AT THIS TIME. CALL LIGHT WITHIN REACH
[2021-04-04 15:56] VITALS: BP 154/85; PULSE 95; TEMP 98
--- NOTE | 2021-04-04 16:06 | NUR ---
Clinical Veterinarian and SW student followed up with patient on home health and patient advised she wants to speak with her daughter, Michelle turcios before deciding on an agency. SW faxed referral/order for platform attachment to [facility]. Shannan at [facility] advised they would try to deliver the attachment tomorrow to ensure it is compatible with patient's walker.
[2021-04-05 05:14] VITALS: BP 119/79; PULSE 85; TEMP 97.5
--- NOTE | 2021-04-05 05:49 | NUR ---
PT has requested help to restroom all this shift, d/t pain, see eMar for meds given, daughter brought in compression socks and RN applied for pt.
--- NOTE | 2021-04-05 06:50 | NUR ---
Report received from MAT Alex. Patient is in recliner. Patient states pain is 7/10 and requested pain pill. Call light and bedside table are within reach. Will continue to monitor throughout shift.
--- NOTE | 2021-04-05 15:03 | NUR ---
Patient has completed all therapies for the day is resting comfortably in recliner. Patient stated she was having pain but denied pain medication at this time. Will continue to monitor patient throughout the shift.
[2021-04-05 15:32] VITALS: BP 129/76; PULSE 80; TEMP 97.6
--- NOTE | 2021-04-05 15:57 | NUR ---
This nurse called Breanne to make patient an appointment but had to leave a message.
--- NOTE | 2021-04-05 16:02 | NUR ---
Cabin Crew met with patient to follow up on Home Health. Patient selected [facility]. SW contacted Nadeen at [facility] and faxed referral. Nadeen advised they will be able to accept. ALEJANDRO confirmed with patient that her platform attachment was delivered today to her room. SW also reviewed IM form with patient who verbalized understanding then provided signature. ALEJANDRO placed form in chart and provided copy to patient. Patient to discharge tomorrow with [facility].
--- NOTE | 2021-04-05 20:00 | NUR ---
Bedisde shift report received, assumed care for caustic cresylate shift superintendent. Assessment complete. A&Ox4. Denies nausea/shortness of breath. Rating pain 2/10 to left knee/hip-described as constant ache-denies need for intervention. States she took her DAVIN hose off because they were starting to cut in and causing increased pain. VS remain stable. Plan of care discussed for this shift to include HS meds/calling for questions/concerns. Verbalizes undertanding. Back to bed at this time. Will monitor.
--- NOTE | 2021-04-05 21:36 | NUR ---
C/O pain to left hip/arm-rating pain 7/10 on pain scale-described as constant throbbing. [place] given per dr stahl.
--- NOTE | 2021-04-06 | NUR ---
Resting eyes closed. No s/s of pain noted.
--- NOTE | 2021-04-06 01:44 | NUR ---
Called with c/o pain to left hip-rating pain 8/10 on pain scale described as constant throbbing. Oxycodone given per dr stahl.
[2021-04-06 05:49] VITALS: BP 115/58; PULSE 84; TEMP 98.1
--- NOTE | 2021-04-06 06:04 | NUR ---
Rested well this shift. Received oxycodone x2 for pain control with adequate results. VS remained stable. Plan for DC home today with Home Health. Denies current needs. Call light in reach. Will monitor.
--- NOTE | 2021-04-06 06:38 | NUR ---
Called with c/o pain to left hip-rating pain 6/10 on pain scale, described as constant throbbing. Oxycodone given per dr stahl.
--- NOTE | 2021-04-06 07:03 | NUR ---
Report received from MAT Butt. Patient is resting comfortable in recliner and just received a pain pill. Patient states pain is 6/10. Will continue to monitor throughout shift.
[2021-04-06] MEDS ORDERED: PREMARIN .3MG0.3 MG PO (08:55)
[2021-04-06] MEDS ORDERED: COZAAR 50MG50 MG/TAB PO (08:58)
[2021-04-06] MEDS ORDERED: ASPI325T6 PO (08:58)
[2021-04-06] MEDS ORDERED: FLEXERIL 1010 MG/TAB PO (08:58)
[2021-04-06] MEDS ORDERED: ROXICODONE 55 MG/TAB PO (09:03)
--- NOTE | 2021-04-06 13:30 | NUR ---
Patient has been discharged from room. Discharged paperwork has been signed and patient and daughter have removed all personal belongings. Patient uderstands the importance of keeping follow up appointments. Patient was transported via and seatbelted in for ride home with daughter.
== END 2021-04-06 13:30 | disposition home health service (06) | DRG 560 ==
PROVIDERS: ADMIT Physical Medicine & Rehabilitation Sports Medicine
DX: S72.045D Nondisplaced fracture of base of neck of left femur, subsequent encounter for closed fracture with routine healing (principal); N39.0 Urinary tract infection, site not specified; S52.592D Other fractures of lower end of left radius, subsequent encounter for closed fracture with routine healing; R26.89 Other abnormalities of gait and mobility; R01.1 Cardiac murmur, unspecified; I10 Essential (primary) hypertension; K21.9 Gastro-esophageal reflux disease without esophagitis; W00.0XXD Fall on same level due to ice and snow, subsequent encounter; Z73.6 Limitation of activities due to disability; Y92.29 Other specified public building as the place of occurrence of the external cause; K59.00 Constipation, unspecified; Z79.891 Long term (current) use of opiate analgesic; Z79.82 Long term (current) use of aspirin; Z90.710 Acquired absence of both cervix and uterus; Z88.8 Allergy status to other drugs, medicaments and biological substances; Z88.1 Allergy status to other antibiotic agents; Z88.5 Allergy status to narcotic agent
CPT/HCPCS: 99221; 99231-AI; 99232-AI

== ENCOUNTER → 2023-08-27 | Outpatient (CLI) | payer MEDICARE, BC ==
[~2023-08-27] MED LIST changes: +PEPCID 20MG TAB20 MG PO; +PRAVACHOL 40MG40 MG PO; +VITAMIN D31000 I1 PO
== END ==
LOC: MHCPAIN 13:01
DX: M54.12 Radiculopathy, cervical region (principal); M54.50 Low back pain, unspecified; I10 Essential (primary) hypertension; E78.5 Hyperlipidemia, unspecified; M47.892 Other spondylosis, cervical region
CPT/HCPCS: G0463

== ENCOUNTER → 2023-11-20 | Outpatient (CLI) | payer MEDICARE, BC | LOC: MHCPAIN 13:12 | DX: M47.892 Other spondylosis, cervical region (principal); M48.02 Spinal stenosis, cervical region; M54.12 Radiculopathy, cervical region; I10 Essential (primary) hypertension; E78.5 Hyperlipidemia, unspecified | CPT/HCPCS: G0463 ==